=== PATIENT | male | born 1985 | race Caucasian/White ===

== ENCOUNTER 2019-12-24 17:39 | Emergency (ER) | payer SELFPAY ==
[2019-12-24 17:46] VITALS: BP 164/100; PULSE 95; RESP 17; TEMP 36.9; O2SAT 98; BMI 23.6
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
[2019-12-24 18:15] LABS: Basophils % 0.6 %; Eosinophils # 0.1 10^3/uL (0.0-0.8); Eosinophils % 1.3 %; Hemoglobin 15.3 g/dL (11.7-16.6); Lymphocytes # 1.8 10^3/uL (0.8-4.8); Lymphocytes % 25.5 %; Mean Corpuscular Hemoglobin 31.9 pg (28.0-34.0); Mean Corpuscular Volume 93.8 fL (80-94); Mean Platelet Volume 9.3 fL (7.4-10.4); Monocytes # 0.5 10^3/uL (0.2-0.9); Monocytes % 7.4 %; Neutrophils # 4.4 10^3/uL (1.8-7.7); Neutrophils % 64.9 %; Nucleated Red Blood Cells % 0 %; Platelet Count 248 10^3/cmm (130-400); Red Cell Distribution Width 12.3 % (12.1-15.1); White Blood Count 6.9 10^3/uL (4.0-10.0)
[2019-12-24] MEDS: iohexol 300 mg/mL 100 mL Btl IV (18:15)
[2019-12-24 18:32] VITALS: RESP 18
[2019-12-24] MEDS: morphine 4 mg/mL SDV 1 mL IVP (18:32)
[2019-12-24 18:33] LABS: Lactate (Lactic Acid level) 0.8 mmol/L (0.5-2.2)
[2019-12-24] MEDS: ondansetron 2 mg/ML SDV 2 mL 4 MG IVP (18:33)
[2019-12-24] MEDS: ketorolac 30 mg/mL INJ 15 MG IVP (18:33)
[2019-12-24 18:34] LABS: Alanine Aminotransferase 31 U/L (0-41); Albumin Level 4.7 g/dL (3.5-5.2); Alkaline Phosphatase 78 IU/L (40-130); Anion Gap 14.1 (5-19); Aspartate Amino Transferase 24 U/L (0-40); Blood Urea Nitrogen 14 mg/dL (6-20); Calcium 9.2 mg/dL (8.5-10.5); Carbon Dioxide 27 mmol/L (22-29); Chloride 99 mmol/L (98-107); Globulin 2.5 g/dL (1.3-4.6); Glomerular Filtration Rate 85.5 mL/min (90-130); Glucose 102 mg/dL (65-115); Lipase 44 U/L (13-60); Osmolality Calculated 278 mOsm/kg (285-295); Potassium 4.1 mmol/L (3.5-5.1); Sodium 136 mmol/L (136-145); Total Bilirubin 0.5 mg/dL (0.15-1.2); Total Protein 7.2 g/dL (6.6-8.7)
[2019-12-24 19:18] VITALS: BP 156/103; PULSE 96; RESP 14; O2SAT 96
[2019-12-24 19:22] VITALS: PULSE 96; O2SAT 96
[2019-12-24 19:34] LABS: Add Urine Microscopic? NO
[2019-12-24 19:36] LABS: Urine Appearance Clear (CLEAR); Urine Color Yellow (Yellow); pH Urine 6 (5-7)
[2019-12-24 19:37] LABS: Bilirubin Urine Neg (NEGATIVE); Blood Urine Neg (Negative); Glucose Urine UA Norm (Normal); Ketones Urine Negative (Negative); Leukocyte Esterase Urine Negative (Negative); Nitrate Urine Negative (Negative); Protein Urine Neg (Negative); Urobilinogen Urine Norm (Negative)
== END 2019-12-24 19:23 | disposition home or self-care (01) ==
LOC: ER 19:02
PROVIDERS: Emergency Provider Emergency Medicine
DX: S20.219A Contusion of unspecified front wall of thorax, initial encounter (principal); S30.1XXA Contusion of abdominal wall, initial encounter; V53.6XXA Passenger in pick-up truck or van injured in collision with car, pick-up truck or van in traffic accident, initial encounter; Z87.891 Personal history of nicotine dependence
CPT/HCPCS: 12345; 36415; 71260; 74177; 80053; 81003; 83605; 83690; 85025; 86850; 86900; 96374; 96375; 99282; 99284; J1885; J2270; J2405; Q9967

== ENCOUNTER → 2020-03-22 09:50 | Outpatient (BNVA) | payer SELFPAY | PROVIDERS: Family Provider Nurse Practitioner Family; Visit Provider Internal Medicine | DX: Z01.812 Encounter for preprocedural laboratory examination (principal) | CPT/HCPCS: 87635 ==

== ENCOUNTER 2020-03-24 06:58 | Outpatient (CLI) | payer SELFPAY ==
--- NOTE | 2020-03-24 09:34 | PFTS_ITS ---
Date of Study:03/24/20 Date of Dictation: MECHANICS: Forced vital capacity (FVC) is normal. Forced expiratory volume in one second (FEV1) is normal. FEV1/FVC is normal. FLOW VOLUME LOOP: Normal. LUNG VOLUMES: Total lung capacity (TLC) is normal. Residual volume (RV) is reduced. DIFFUSING CAPACITY FOR CARBON MONOXIDE: Normal. INTERPRETATION: There is mild obstruction on prebronchodilator spirometry that corrects completely with albuterol inhalation. The postbronchodilator spirometry is normal. There is postbronchodilator response however does not meet statistical significance. Lung volumes are normal. The reduced residual volume is secondary to increased expiratory reserve volume. Gas exchange (DLCO) is normal. MTDD
== END 2020-03-24 06:59 | disposition home or self-care (01) ==
LOC: RT 06:58
PROVIDERS: Family Provider Nurse Practitioner Family; Visit Provider Nurse Practitioner Family
DX: S20.219A Contusion of unspecified front wall of thorax, initial encounter (principal); X58.XXXA Exposure to other specified factors, initial encounter
CPT/HCPCS: 94060; 94726; 94729; J7611

== ENCOUNTER 2020-04-06 14:37 | Outpatient (CLI) | payer SELFPAY ==
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
== END 2020-04-06 14:38 | disposition home or self-care (01) ==
LOC: RADSHAW 14:40
PROVIDERS: PCP Nurse Practitioner Family; Visit Provider Nurse Practitioner Family
DX: M19.011 Primary osteoarthritis, right shoulder (principal); M51.26 Other intervertebral disc displacement, lumbar region; V89.2XXA Person injured in unspecified motor-vehicle accident, traffic, initial encounter
CPT/HCPCS: 72148; 73221